=== PATIENT | male | born 1980 | race Two or more races ===

== ENCOUNTER 2018-11-04 19:11 | Emergency (ER) | payer SELFPAY ==
[~2018-11-04] VITALS: Ht 182.9 cm; Wt 105.9 kg
[2018-11-04] MEDS ORDERED: ASPIRIN 81 MG TABLET CHEW PO ONE (19:30)
[2018-11-04 19:40] LABS: BASOPHILS # (AUTO) 0.03 x10^3/uL (0-0.1); BASOPHILS % (AUTO) 1 % (0-1); EOSINOPHILS % (AUTO) 8 % (1-7); LYMPHOCYTES # (AUTO) 1.68 x10^3/uL (1-3.4); LYMPHOCYTES % (AUTO) 28 % (22-44); MD NO; MEAN CORPUSCULAR HEMOGLOBIN 31.7 pg (27.5-34.5); MEAN CORPUSCULAR HGB CONC 34.1 g/dL (33.2-36.2); MEAN CORPUSCULAR VOLUME 92.9 fL (81-97); MONOCYTES # (AUTO) 0.52 x10^3/uL (0.2-0.8); MONOCYTES % (AUTO) 9 % (2-9); NEUTROPHILS # (AUTO) 3.33 x10^3/uL (1.8-6.8); NEUTROPHILS % (AUTO) 55 % (42-75); PLATELET COUNT 217 x10^3/uL (130-400); RED BLOOD COUNT 4.53 x10^6/uL (4.38-5.82); RED CELL DISTRIBUTION WIDTH 12.9 % (9.4-14.8)
[2018-11-04 19:53] LABS: ALBUMIN 3.9 g/dL (3.4-5.0); ANION GAP 2 mmol/L (5-15); CALCIUM 8.9 mg/dL (8.5-10.1); CHLORIDE 109 mmol/L (98-107)
[2018-11-04] MEDS ORDERED: ASPIRIN 81 MG TABLET CHEW ONE (19:58)
[2018-11-04] MEDS ORDERED: MAALOX/HYOSCYAMINE/LIDOCAINE 45 ML BTL ONE (19:59)
[2018-11-04 20:00] LABS: ALANINE AMINOTRANSFERASE 38 U/L (12-78); ALKALINE PHOSPHATASE 117 U/L (45-117); BILIRUBIN,TOTAL 0.6 mg/dL (0.2-1.0); TOTAL PROTEIN 7.7 g/dL (6.4-8.2); TROPONIN I < 0.015 ng/mL (0.000-0.045)
[2018-11-04] MEDS ORDERED: MAALOX/HYOSCYAMINE/LIDOCAINE 45 ML BTL PO ONE (20:00)
--- NOTE | 2018-11-04 20:02 | NUR ---
PT STATES HE HAS COUGHING WHEN LYING IN BED FOR A FEW WEEKS. TODAY HE HAD A COUGHING ATTACK AND NOW FEELS LIKE SOMETHING IN HIS THROAT/TIGHTNESS. MEDICATED PER ORDERS AND ON THE MONITOR
[2018-11-04] MEDS ORDERED: DEXAMETHASONE 4 MG TABLET ONE (21:49)
[2018-11-04] MEDS ORDERED: DEXAMETHASONE 4 MG TABLET PO ONE (22:00)
[2018-11-04 22:04] VITALS: BP 134/67
== END 2018-11-04 22:06 | disposition home or self-care (01) ==
LOC: ED 22:02
DX: R06.00 Dyspnea, unspecified (principal); J38.5 Laryngeal spasm; I10 Essential (primary) hypertension; E11.9 Type 2 diabetes mellitus without complications
CPT/HCPCS: 36415; 71046; 80053; 84484; 85025; 93005; 99284

== ENCOUNTER 2019-05-31 18:04 | Emergency (ER) | payer MEDICAID ==
[~2019-05-31] VITALS: Ht 182.9 cm; Wt 110.3 kg
[2019-05-31 18:16] VITALS: BP 161/100
--- NOTE | 2019-05-31 18:57 | NUR ---
THIS IS A 38 YO MALE COMING IN FOR "CHEST CONGESTION, BODY ACHES, HEADACHE, AND DRY COUGH FOR THE PAST FEW DAYS". PATIENT PLACED ON CONTINUOUS SPO2 AT 98%. PATIENT HAS HX T2DM CONTROLLED WITH DIET. VSS, NAD, CALL LIGHT IN REACH, DENIES NEEDS AT THIS TIME.
--- NOTE | 2019-05-31 19:02 | NUR ---
BEDSIDE REPORT RECEIVED FROM FLAKO MCMAHON. CARE ASSUMED.
--- NOTE | 2019-05-31 19:59 | NUR ---
Patient/Caregiver given discharge instructions and they have confirmed that they understand the instructions. Patient ambulatory with steady gait.
== END 2019-05-31 20:06 | disposition home or self-care (01) ==
LOC: ED 19:22
DX: J00 Acute nasopharyngitis [common cold] (principal); B97.89 Other viral agents as the cause of diseases classified elsewhere; I10 Essential (primary) hypertension
CPT/HCPCS: 71046; 87081; 87880; 99284

== ENCOUNTER 2020-04-15 18:26 | Emergency (ER) | payer MEDICAID ==
[~2020-04-15] VITALS: Ht 182.9 cm; Wt 102.0 kg
[2020-04-15 18:58] VITALS: BP 130/78
== END 2020-04-15 19:32 | disposition home or self-care (01) ==
LOC: ED 19:21
DX: U07.1 COVID-19 (principal); J01.90 Acute sinusitis, unspecified; B97.89 Other viral agents as the cause of diseases classified elsewhere; R51.9 Headache, unspecified; R42 Dizziness and giddiness; R05 Cough; I10 Essential (primary) hypertension
CPT/HCPCS: 87635; 93005; 99284